=== PATIENT | female | born 1985 | race Caucasian/White ===

== ENCOUNTER 2018-05-19 11:00 | Emergency (ER) | payer OTHER ==
[~2018-05-19] VITALS: Ht 154.9 cm; Wt 49.9 kg
[2018-05-19 11:34] LABS: BASO # 0.1 10*3/uL (0.0-0.1); BASO % 0.5 % (0.0-1.0); EOS # 0.1 10*3/uL (0.0-0.4); HEMATOCRIT 45.5 % (37.0-47.0); HEMOGLOBIN 15.6 g/dl (12.0-16.0); LYMPH # 1.5 10*3/uL (1.3-4.4); LYMPH % 13.8 % (27.0-41.0); MEAN CELL VOLUME 96.2 fl (81.0-99.0); MEAN CORPUSCULAR HGB CONC 34.3 g/dl (33.0-37.0); MEAN PLATELET VOLUME 8.7 fl (9.6-12.3); MONO # 1.2 10*3/uL (0.1-1.0); MONO % 10.9 % (3.0-9.0); NEUT # 8.1 10*3/uL (2.3-7.9); NEUT % 73.4 % (47.0-73.0); PLATELET COUNT AUTOMATED 331 10*3/uL (130-400); RED BLOOD COUNT 4.73 10*6/uL (4.10-5.10); RED CELL DISTRI WIDTH 12.5 % (0-14.5)
[2018-05-19 11:47] LABS: BILIRUBIN NEGATIVE (NEGATIVE); BLOOD TRACE-INTACT (NEGATIVE); CLARITY SL CLOUDY (CLEAR); COLOR YELLOW (YELLOW); GLUCOSE NEGATIVE (NEGATIVE); KETONE NEGATIVE (NEGATIVE); LEUKO ESTERASE NEGATIVE (NEGATIVE); NITRITE NEGATIVE (NEGATIVE); SPECIFIC GRAVITY <= 1.005 (1.005-1.030); UROBILINOGEN 0.2 E.U./dl (0.2-1.0)
[2018-05-19 11:57] LABS: BACTERIA 2+; EPITHELIAL CELLS 15-20
[2018-05-19 11:59] LABS: ALBUMIN 4.2 gm/dl (3.1-4.5); ALKALINE PHOSPHATASE 104 U/L (45-117); BUN 6 mg/dl (7-24); CHLORIDE 103 mmol/L (98-107); CREATININE 0.81 mg/dL (0.55-1.02); LIPASE 166 U/L (73-393); POTASSIUM 3.6 mmol/L (3.5-5.1); SGOT/AST 20 IU/L (3-35); SGPT/ALT 23 U/L (12-78); SODIUM 135 mmol/L (136-145); TOTAL PROTEIN 8.2 gm/dL (6.4-8.2)
[2018-05-19] MEDS ORDERED: CLARITIN10 MG PO (12:17)
[2018-05-19] MEDS ORDERED: PREDNISONE10 MG PO (12:17)
[2018-05-19] MEDS ORDERED: FLONASE ALLERG9.9 ML NAS (12:17)
[2018-05-19] MEDS ORDERED: CHLORZOXAZONE500 M2 PO (12:17)
[2018-05-19] MEDS ORDERED: ZOFRAN4 MG PO (12:21)
== END 2018-05-19 13:30 | disposition home or self-care (01) ==
LOC: ED 11:00
PROVIDERS: Nurse Practitioner Family
DX: B34.9 Viral infection, unspecified (principal); R03.0 Elevated blood-pressure reading, without diagnosis of hypertension; J02.9 Acute pharyngitis, unspecified; F17.200 Nicotine dependence, unspecified, uncomplicated; Z91.041 Radiographic dye allergy status